=== PATIENT | female | born 1950 | race Caucasian/White ===

== ENCOUNTER → 2016-10-29 | Outpatient (CLI) | payer BC ==
[~2016-10-29] MED LIST: BENICAR 20MG TA20 MG PO; [UNRECOGNIZED DRUG - REMARK]
== END ==
LOC: MC.RAD 15:47
DX: Z12.31 Encounter for screening mammogram for malignant neoplasm of breast (principal); D24.2 Benign neoplasm of left breast; D24.1 Benign neoplasm of right breast

== ENCOUNTER → 2017-11-25 | Outpatient (CLI) | payer BC | LOC: MC.RAD 14:20 | DX: Z12.31 Encounter for screening mammogram for malignant neoplasm of breast (principal) ==

== ENCOUNTER → 2018-12-05 | Outpatient (CLI) | payer BC | LOC: MC.RAD 09:11 | DX: Z12.31 Encounter for screening mammogram for malignant neoplasm of breast (principal) ==

== ENCOUNTER → 2020-02-13 | Outpatient (CLI) | payer BC | LOC: MC.RAD 10:45 | DX: Z12.31 Encounter for screening mammogram for malignant neoplasm of breast (principal) ==

== ENCOUNTER 2020-09-30 10:37 | Emergency (ER) | payer BC ==
[~2020-09-30] VITALS: Ht 167.6 cm; Wt 65.9 kg
[2020-09-30 10:49] VITALS: TEMP 97.8
[2020-09-30 12:00] VITALS: BP 131/71; PULSE 72
== END 2020-09-30 12:01 | disposition home or self-care (01) ==
LOC: COL.ER 10:37
DX: R04.0 Epistaxis (principal)

== ENCOUNTER → 2021-04-01 | Outpatient (CLI) | payer BC | LOC: MC.RAD 08:42 | DX: Z12.31 Encounter for screening mammogram for malignant neoplasm of breast (principal) ==